=== PATIENT | male | born 1995 | race Asian ===

== ENCOUNTER 2018-06-19 00:25 | Emergency (ER) | payer BC, OTHER ==
[~2018-06-19] VITALS: Ht 165.1 cm; Wt 73.9 kg
[2018-06-19 00:27] VITALS: BP 151/91
[2018-06-19] MEDS ORDERED: LIDOCAINE-MPF 1%, 5ML ONE (00:44)
[2018-06-19] MEDS ORDERED: CEPHALEXIN 500 MG CAPSULE ONE (00:59)
[2018-06-19] MEDS ORDERED: SULFAMETH./TRIMETHOPRIM DS 800MG/160MG TABLET ONE (00:59)
[2018-06-19] MEDS ORDERED: LIDOCAINE 1%, 10ML INFIL ONE (01:00)
[2018-06-19] MEDS ORDERED: BACITRACIN ZINC OINT 500U/GM, 0.9 GM ONE (01:00)
[2018-06-19] MEDS ORDERED: SULFAMETH./TRIMETHOPRIM DS 800MG/160MG TABLET PO ONE (01:00)
[2018-06-19] MEDS ORDERED: CEPHALEXIN 500 MG CAPSULE PO ONE (01:00)
--- NOTE | 2018-06-19 01:02 | NUR ---
PT MEDICATED PER MAY. PT D/C WITH D/C SUMMARY AND SCRIPTS. ALL QUESTIONS ANSWERED. PT WOUND DRESSED IN ER AND PT VERBALIZES UNDERSTANDING OF HOME WOUND CARE. PT DENIES ANY OTHER NEEDS PERTAINING TO THIS VISIT. PT AMBULATES TO REGISTRATION DESK WITH STEADY GAIT FOR D/C HOME WITH FRIEND.
== END 2018-06-19 01:10 | disposition home or self-care (01) ==
LOC: ED 01:04
DX: L02.413 Cutaneous abscess of right upper limb (principal)
CPT/HCPCS: 10060; 99283